=== PATIENT | male | born 1995 | race Caucasian/White ===

== ENCOUNTER 2020-01-22 13:28 | Emergency (ER) | payer BC, OTHER ==
[~2020-01-22] VITALS: Ht 177.8 cm; Wt 145.0 kg
[2020-01-22] MEDS ORDERED: IBUP200T45 PO (13:36)
[2020-01-22] MEDS ORDERED: diazePAM 10 MG TAB PO ONE (14:15)
[2020-01-22] MEDS ORDERED: CYCL-707 PO (14:20)
[2020-01-22] MEDS ORDERED: IBUP-1022 PO (14:20)
[2020-01-22] MEDS ORDERED: KETOROLAC 60MG 2ML VIAL IM ONE (14:30)
[2020-01-22 15:11] VITALS: BP 135/72
== END 2020-01-22 15:12 | disposition home or self-care (01) ==
LOC: M ED 13:28
DX: S39.012A Strain of muscle, fascia and tendon of lower back, initial encounter (principal); X58.XXXA Exposure to other specified factors, initial encounter; Y92.9 Unspecified place or not applicable; Y93.9 Activity, unspecified; Y99.9 Unspecified external cause status; Z88.0 Allergy status to penicillin
CPT/HCPCS: 96372; 99284; J1885